=== PATIENT | male | born 1990 | race African-American/Black ===

== ENCOUNTER 2019-02-23 22:09 | Emergency (ER) | payer OTHER ==
[~2019-02-23] VITALS: Ht 175.3 cm; Wt 104.3 kg
[2019-02-23] MEDS ORDERED: IBUPROFEN 400 MG TAB PO ONE (23:00)
[2019-02-23] MEDS ORDERED: HYDROcodone-ACET 7.5/325MG TAB PO ONE (23:00)
[2019-02-24 02:00] VITALS: BP 110/70
== END 2019-02-24 02:55 ==
LOC: EEVIPCON 22:14 → ER 22:14
DX: S62.634A Displaced fracture of distal phalanx of right ring finger, initial encounter for closed fracture (principal); S80.01XA Contusion of right knee, initial encounter; W18.11XA Fall from or off toilet without subsequent striking against object, initial encounter; Y93.E1 Activity, personal bathing and showering; Y92.091 Bathroom in other non-institutional residence as the place of occurrence of the external cause; Y99.8 Other external cause status
CPT/HCPCS: 29130; 29505; 73130; 73562